=== PATIENT | male | born 1965 | race African-American/Black ===

== ENCOUNTER 2019-01-22 12:30 | Emergency (ER) | payer OTHER ==
[~2019-01-22] VITALS: Ht 172.7 cm; Wt 96.0 kg
[~2019-01-22 12:30] MED LIST: LISINOPRIL
[2019-01-22] MEDS ORDERED: IBUPROFEN 800MG TABLET PO ONE (14:15)
[2019-01-22] MEDS ORDERED: ACETAMINOPHEN 500MG TABLET PO ONE (14:15)
[2019-01-22 16:07] VITALS: BP 145/70
== END 2019-01-22 16:07 | disposition home or self-care (01) ==
LOC: ER 12:30
DX: S16.1XXA Strain of muscle, fascia and tendon at neck level, initial encounter (principal); M54.5 Low back pain; M25.562 Pain in left knee; I10 Essential (primary) hypertension; M19.90 Unspecified osteoarthritis, unspecified site; F17.210 Nicotine dependence, cigarettes, uncomplicated; V73.6XXA Passenger on bus injured in collision with car, pick-up truck or van in traffic accident, initial encounter; Y93.89 Activity, other specified; Y92.488 Other paved roadways as the place of occurrence of the external cause
CPT/HCPCS: 72100; 73562; 99283